=== PATIENT | male | born 1980 | race African-American/Black ===

== ENCOUNTER 2017-03-25 01:20 | Emergency (ER) | payer SELFPAY ==
[~2017-03-25] VITALS: Ht 182.9 cm; Wt 89.6 kg
[2017-03-25 01:35] VITALS: Ht 182.9 cm; Wt 89.6 kg
[2017-03-25] MEDS ORDERED: KETOROLAC 60 MG INJ IM STA (03:35)
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
[2017-03-25] MEDS ORDERED: IBUP800T25 PO (03:36)
[2017-03-25] MEDS ORDERED: CYCL-319 PO (03:36)
[2017-03-25] MEDS ORDERED: SOD CHLORIDE 0.9% 1,000 ML IV ONE (04:00)
[2017-03-25 04:33] LABS: BASOPHIL # 0.1 10^3/ul (0.0-0.1); BASOPHILS % 0.8 % (0.0-2.0); EOSINOPHILS # 0.4 10^3/ul (0.0-0.5); HEMATOCRIT 41.5 % (42.0-52.0); LYMPHOCYTES # 3.4 10^3/ul (0.8-2.9); LYMPHOCYTES % 39.3 % (15.0-51.0); MEAN CORPUSCULAR HEMOGLOBIN 27.3 pg (29.0-33.0); MEAN CORPUSCULAR HGB CONC 31.3 g/dl (32.0-37.0); MEAN CORPUSCULAR VOLUME 87.2 fl (82.0-101.0); MEAN PLATELET VOLUME 10.5 fl (7.4-10.4); MONOCYTE # 0.6 10^3/ul (0.3-0.9); MONOCYTES % 6.5 % (0.0-11.0); NEUTROPHIL # 4.3 10^3/ul (1.6-7.5); NEUTROPHILS % 49.2 % (39.0-77.0); PLATELET COUNT 212 10^3/UL (140-415); RED BLOOD COUNT 4.76 10^6/ul (4.70-6.10); WHITE BLOOD COUNT 8.7 10^3/ul (4.8-10.8)
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
[2017-03-25 05:00] LABS: ALANINE AMINOTRANSFERASE 28 IU/L (13-69); ALBUMIN 3.5 g/dl (3.3-4.9); ALBUMIN/GLOBULIN RATIO 1.16; ALKALINE PHOSPHATASE 75 IU/L (42-121); ANION GAP 14 (8-16); ASPARTATE AMINO TRANSFERASE 24 IU/L (15-46); BILIRUBIN,INDIRECT 0.4 mg/dl (0-1.1); BILIRUBIN,TOTAL 0.4 mg/dl (0.2-1.3); BLOOD UREA NITROGEN 17 mg/dl (7-20); CALCIUM 8.6 mg/dl (8.4-10.2); CARBON DIOXIDE 25 mmol/L (21-31); CHLORIDE 109 mmol/L (97-110); CREATININE 0.93 mg/dl (0.61-1.24); GLUCOSE 103 mg/dl (70-220); POTASSIUM 4.3 mmol/L (3.5-5.1); SODIUM 144 mmol/L (135-144); TOTAL PROTEIN 6.5 g/dl (6.1-8.1)
[2017-03-25 05:09] VITALS: BP 123/82; PULSE 51; RESP 14; TEMP 98.8
[2017-03-25 05:13] LABS: INR 1.02; PROTIME 13.4 Sec (12.2-14.2)
[2017-03-25 05:14] LABS: PARTIAL THROMBOPLASTIN TIME 30.6 Sec (25.0-35.0)
[2017-03-25 05:27] LABS: TROPONIN-I < 0.012 ng/ml (0.00-0.12)
== END 2017-03-25 05:30 | disposition home or self-care (01) ==
LOC: FTE 01:20
DX: M62.830 Muscle spasm of back (principal); M54.31 Sciatica, right side; M54.32 Sciatica, left side; R55 Syncope and collapse
CPT/HCPCS: 36415; 70450; 80053; 82962; 84484; 85025; 85610; 85730; 93005; 96372; 99285; J1885; J7030